=== PATIENT | male | born 1975 | race Hispanic/Latino ===

== ENCOUNTER 2023-12-17 13:21 | Emergency (ER) | payer SELFPAY ==
[2023-12-17 13:26] VITALS: BP 118/74; PULSE 71; RESP 18; TEMP 36.9; O2SAT 98; BMI 24.2
--- NOTE | 2023-12-17 14:08 | ED_ITS ---
<Statement entered by Prabhu Bean DO - 12/17/23 14:53> Dr. Bean: I was immediately available in the department for consultation. Documentation has been reviewed. I agree with assessment and plan. HPI - Skin/Abscess/Foreign Bdy General Chief complaint: Skin/Abscess/Foreign Body Stated complaint: sores on his head poss infection, diabetic Time Seen by Provider: 12/17/23 13:47 Source: patient Mode of arrival: Ambulatory Limitations: no limitations History of Present Illness HPI narrative: This patient is a 48-year-old male that presents today for suspected abscesses over the right posterior side and base of the scalp for approximately 2 weeks. According to his , at bedside, they drained depending if he turns his head one way or the other. He has not seen his PCP for today's chief complaint. Patient denies night sweats, fever, chills, blurry vision, neck pain or recent travel. He was recently diagnosed as having diabetes in which he takes metformin as well as Lantus insulin. His blood sugars noted to be over 250 mg/dL at today's visit in which they are still adjusting his medications for tighter glucose control. No treatments have been tried for this. The patient also is overdue for his tetanus immunization. Related Data Previous Rx's Medication Instructions Recorded chlorhexidine gluconate 4 % 1 applic topical DAILY 12 months 12/17/23 topical liquid (Hibiclens) #473 mL doxycycline hyclate 100 mg tablet 100 mg PO BID #20 tabs 12/17/23 mupirocin 2 % topical ointment 1 applic topical TID #22 grams 12/17/23 Allergies Allergy/AdvReac Type Severity Reaction Status Date / Time No Known Drug Allergies Allergy Verified 12/17/23 13:26 Review of Systems Review of Systems Narrative: Review of systems: General: See HPI Integumentary: See HPI All other review of systems have been reviewed and are ultimately negative unless otherwise stated in the HPI Patient History Social History Smoking Status: Never smoker Smoking Status: Never smoker Substance Use Type: does not use Exam Initial Vital Signs Initial Vital Signs: Vital Signs Temperature 98.5 F 12/17/23 13:26 Pulse Rate 71 12/17/23 13:26 Respiratory Rate 18 12/17/23 13:26 Blood Pressure 118/74 12/17/23 13:26 Pulse Oximetry 98 12/17/23 13:26 Oxygen Delivery Method Room Air 12/17/23 13:26 Const General: cooperative, healthy appearing, comfortable, well developed and well groomed [facility] Ears: hearing grossly normal bilaterally and external ears normal Nose: external nose normal and nares normal Face and sinus: normal facial exam Mouth: oral mucosae normal, lip normal and tongue normal Throat: posterior oropharynx normal Eyes General: Yes appearance normal, both eyes and all related structures EOM: EOM intact bilaterally Neck Neck: normal visual inspection, full ROM and no meningeal signs Resp Effort & Inspection: normal respiratory effort and able to speak in complete sentences Cardio Rate: regular rate Rhythm: regular rhythm Heart Sounds: S1 normal and S2 normal Back/Spine/Pelvis Back: normal to inspection Skin Other: Patient has what appears to be 3 small, abscesses over the right posterior scalp. There is scab formation. No lymphangitic streaking or spontaneous purulent discharge noted. Neuro General: patient alert, patient awake and patient oriented x3 Extrem Other: Patient has a cast over the right lower extremity. Otherwise full range of motion of all other extremities. Course Course Course Narrative: Patient seen and examined. He was given an updated Tdap and was then prepped for discharge home. Orders Ordered: Discontinued Medications Diphtheria/Tetanus/Acell Pertussis (Diph,Pertuss(Acell),Tet Vac/Pf 0.5 Ml Syringe) 0.5 ml IM .ONCE ONE Stop: 12/17/23 14:04 Last Admin: 12/17/23 14:16 Dose: Not Given Documented By: CRISTO Diphtheria/Tetanus/Acell Pertussis (Tet,Diph,Pertuss(Acell),Vac/Pf 0.5 Ml Syringe) 0.5 ml IM .ONCE ONE Stop: 12/17/23 14:18 Last Admin: 12/17/23 14:18 Dose: 0.5 ml Documented By: CRISTO Vital Signs Vital signs: Vital Signs - 8 hr 12/17/23 13:26 Temperature 98.5 F Pulse Rate 71 Respiratory Rate 18 Blood Pressure 118/74 Pulse Oximetry 98 Oxygen Delivery Method Room Air MDM - Skin/Abscess/Foreign Bdy Differential Diagnosis Differential diagnosis: Likely abscess of skin or subcutaneous tissue, viral exanthem, herpes zoster, cellulitis, insect bites and impetigo Medical Records Attestation: I reviewed the patient's medical records. Lab Data Attestation: I reviewed the patient's lab results. Labs: Point of Care Testing Glucose POC 267 MDM Narrative Medical decision making narrative: At this time, it appears small abscess this is over the right side the posterior scalp. There is no evidence justification for incision and drainage at this time. The areas have already scabbed over. I will start the patient on doxycycline as well as mupirocin. I do not believe this is sepsis, necrotizing fasciitis or deep space abscess. Patient appears clinically stable for outpatient follow-up. Patient understands the treatment plan. There were no additional questions at the time of discharge and he will follow up as requested Discharge Plan Departure Patient Disposition: Home Clinical Impression: Chronic hyperglycemia, History of diabetes mellitus Abscess of skin or subcutaneous tissue Qualifiers: Site of cutaneous abscess: head Qualified Code(s): L02.811 - Cutaneous abscess of head [any part, except face] Instructions: DI for Skin Abscess Activity Restrictions/Additional Instructions: Apply moist heat to the affected area 10 min at a time 5 times a day Start the new soap today as well when bathing/showering Follow-up with your regular doctor in 1 week or less for a recheck Return here immediately if worse Prescriptions: New chlorhexidine gluconate [Hibiclens] 4 % liquid 1 applic topical DAILY 360 Days Qty: 473 0RF doxycycline hyclate 100 mg tablet 100 mg PO BID Qty: 20 0RF mupirocin 2 % ointment 1 applic topical TID Qty: 22 0RF Stand Alone Forms: Patient Portal/API
[2023-12-17] MEDS: TET,DIPH,PERTUSS(ACELL),VAC/PF 0.5 ML SYRINGE IM (14:18)
[2023-12-17 14:34] VITALS: BP 122/75; PULSE 70; RESP 16; O2SAT 98
== END 2023-12-17 14:40 | disposition home or self-care (01) ==
PROVIDERS: Emergency Provider Physician Assistant
DX: L02.811 Cutaneous abscess of head [any part, except face] (principal); E11.65 Type 2 diabetes mellitus with hyperglycemia; Z23 Encounter for immunization
CPT/HCPCS: 82962; 90471; 99283; 90715